=== PATIENT | male | born 1960 | race Caucasian/White ===

== ENCOUNTER 2024-07-31 14:16 | Observation (INO) | payer MEDICARE, SELFPAY ==
[2024-07-31] VITALS (19 sets, daily range): BP systolic 118–167; BP diastolic 60–91; PULSE 62–80; RESP 12–19; TEMP 36.3–37.3; O2SAT 92–99; BMI 40.3
--- NOTE | 2024-07-31 14:31 | ED_ITS ---
HPI - Abdominal Pain 2 General: Chief Complaint: Abdominal Pain Stated Complaint: (clinic reff) appendicitis Time Seen by Provider: 07/31/24 14:25 Source: patient Mode of arrival: ambulatory Limitations: no limitations History of Present Illness: 64-year-old male states has been having right lower quadrant abdominal pain for last 2 days. States been a sharp pain states it has been worse with palpation. Has had some nausea diarrhea as well he denies any dysuria has had some low- grade fevers no history of any abdominal surgeries in the past. Associated Symptoms: Reports nausea; Denies chills, dysuria, fever(s) and vomiting Related Data Home Medications ?Medication ?Instructions ?Recorded ?Confirmed garlic 300 mg capsule 300 mg PO DAILY 07/31/24 glucosamine sulf dipot 1 cap PO DAILY 07/31/2407/08 chlr,msm,chond 550 mg-C 30 mg-rodolfo 1 mg capsule (Glucosamine Chondroitin) lisinopril 10 mg tablet 10 mg PO BID 07/31/24 turmeric root extract 500 mg tablet 500 mg PO DAILY 07/31/24 Allergies Allergy/AdvReac Type Severity Reaction Status Date / Time No Known Allergies Allergy Verified 07/31/24 14:19 Review of Systems 2 Const: Denies: fever(s), chills, body aches or change in appetite ENMT: Denies: throat pain or dental pain Card: Denies: chest pain Resp: Denies: dyspnea GI: Reports: abdominal pain and nausea; Denies: vomiting : Denies: dysuria Musc: Denies: neck pain or back pain Skin/Breast: Denies: rash Neuro: Denies: headache(s) Physical Exam 2 Const: COMMON NORMALS: no acute distress, patient oriented x3 and healthy appearing HENMT: COMMON NORMALS: normocephalic and atraumatic HEAD & SCALP: n ormocephalic and atraumatic Eye: COMMON NORMALS: conjunctivae normal CONJUNCTIVA: Yes conjunctivae normal Neck/C-Spine: COMMON NORMALS: full ROM and supple Chest: COMMONS NORMALS: normal inspection of the chest Resp: COMMON NORMALS: normal respiratory effort Cardio: COMMON NORMALS: regular rate, regular rhythm and No murmurs present (Cardio) RATE: regular rate RHYTHM: regular rhythm GI: COMMON NORMALS: Normal to inspection, nondistended, normoactive bowel sounds present, Soft to palpation and no masses PALPATION: Yes Soft to palpation and Yes Tenderness to palpation present (GI) Details: RLQ Extremity: COMMON NORMALS: normal to inspection and full ROM Neuro: COMMON NORMALS: patient oriented x3, moves all extremities and no focal motor deficits Psych: COMMON NORMALS: mental status grossly normal, Normal thought process present and cooperative THOUGHT PROCESS: Normal thought process present Skin: COMMON NORMALS: no rashes or lesions noted and no wounds GENERAL SKIN EXAM: no rashes or lesions noted Course 2 Vital Signs: Vital signs: Vital Signs Temperature 99.1 F 07/31/24 14:19 Pulse Rate 79 07/31/24 16:00 Respiratory Rate 16 07/31/24 14:55 Blood Pressure 138/71 07/31/24 16:00 Pulse Oximetry 98 07/31/24 16:00 Oxygen Delivery Me thod Room Air 07/31/24 16:00 MDM - Abdominal Pain Medical Decision Making Patient presents here with right lower quadrant pain CT shows appendicitis I spoke to surgeon on-call will admit at this time Medical Records I reviewed the patient's medical records. Lab Data I reviewed the patient's lab results. 07/31/24 15:04 07/31/24 15:04 Labs/Radiology: Radiology Impressions Abdomen/Pelvis CT 07/31/24 14:31 IMPRESSION: 1. Fluid-filled enlarged appendix which mild adjacent mesenteric fat stranding , most consistent with uncomplicated acute appendicitis. No abscess formation. No pneumoperitoneum. 2. Simple bilateral renal cysts; no imaging follow-up is required. 3. Enlarged prostate. COMMENTS: 1. THIS REPORT CONTAINS FINDINGS THAT MAY BE CRITICAL TO PATIENT CARE. The exam findings were verbally communicated by me to KAI ONTIVEROS via telephone conference at 5:09 PM AIRBORNE AND AIR DELIVERY SPECIALIST on 07/31/2024. The findings were acknowledged and understood. 2. Consistent with the [employer]'s Incidental Findings Committee white paper (J Am David Radiol 2018): Any incidental renal lesion less than 1 cm or classified as too small to characterize, or any incidental cystic renal lesion characterized as simple-appearing, is likely benign. No follow-up imaging is recommended for these lesions per consensus recommendations based on imaging criteria. Laboratory Results WBC 8.86 10^3/uL (3.29-11.43) 07/31/24 15:04 RBC 5.03 10^6/uL (3.85-5.65) 07/31/24 15:04 Hgb 14.80 g/dL (11.27-16.99) 07/31/24 15:04 Hct 43.9 % (37-53) 07/31/24 15:04 MCV 87.3 fl (82-101) 07/31/24 15:04 MCH 29.4 pg (27-33) 07/31/24 15:04 MCHC 33.7 g/dL (30-55) 07/31/24 15:04 RDW 13.0 % (12.1-15.1) 07/31/24 15:04 Plt Count 216 10^3/cmm (157-399) 07/31/24 15:04 MPV 9.6 fL (7.4-10.4) 07/31/24 15:04 Neut % (Auto) 63.6 % 07/31/24 15:04 Lymph % (Auto) 26.3 % 07/31/24 15:04 Tompkins % (Auto) 6.7 % 07/31/24 15:04 Eos % (Auto) 2.5 % 07/31/24 15:04 Baso % (Auto) 0.7 % 07/31/24 15:04 Neut # (Auto) 5.64 10^3/uL (1.8-7.7) 07/31/24 15:04 Lymph # (Auto) 2.3 10^3/uL (0.8-4.8) 07/31/24 15:04 [place]pkins # (Auto) 0.6 10^3/uL (0.2-0.9) 07/31/24 15:04 Eos # (Auto) 0.2 10^3/uL (0.0-0.8) 07/31/24 15:04 Baso # (Auto) 0.1 10^3/uL (0.0-0.1) 07/31/24 15:04 Nucleated RBC % (auto) 0 % 07/31/24 15:04 Nucleated RBCs # 0.0 /100WBC 07/31/24 15:04 Sodium 139 mmol/L (136-145) 07/31/24 15:04 Potassium 4.1 mmol/L (3.5-5.1) 07/31/24 15:04 Chloride 100 mmol/L (98-107) 07/31/24 15:04 Carbon Dioxide 25 mmol/L (22-29) 07/31/24 15:04 Anion Gap 18.1 (5-19) 07/31/24 15:04 BUN 13 mg/dL (8-23) 07/31/24 15:04 Creatinine 0.8 mg/dL (0.7-1.2) 07/31/24 15:04 GFR Calculation 96.7 mL/min (90-130) 07/31/24 15:04 Glucose 115 mg/dL (65-115) 07/31/24 15:04 Calculated Osmolality 289 mOsm/kg (285-295) 07/31/24 15:04 Calcium 9.5 mg/dL (8.5-10.5) 07/31/24 15:04 Total Bilirubin 0.8 mg/dL (0.15-1.2) 07/31/24 15:04 AST 17 U/L (0-40) 07/31/24 15:04 ALT 20 U/L (0-41) 07/31/24 15:04 Alkaline Phosphatase 77 U/L (40-130) 07/31/24 15:04 Total Protein 7.9 g/dL (6.6-8.7) 07/31/24 15:04 Albumin 4.6 g/dL (3.5-5.2) 07/31/24 15:04 Globulin 3.3 g/dL (1.3-4.6) 07/31/24 15:04 Lipase 19 U/L (13-60) 07/31/24 15:04 Amorphous Sediment Not Reportable 07/31/24 16:53 All radiology interpretation(s) finalized by discharge Discharge Plan Discharge Patient Disposition: Admitted As Inpatient Clinical Impression: Acute appendicitis Condition: Stable Prescriptions: No Action garlic 300 mg Capsule 300 mg PO DAILY lisinopril 10 mg tablet 10 mg PO BID Glucosamine Chondroitin 550-30-1 mg Capsule 1 cap PO DAILY turmeric root extract 500 mg Tablet 500 mg PO DAILY Referrals: Stacey De Jesus, UNDERCOVER COP-C [Family Provider] - Patient Instructions: Appendicitis (GEN) Print Language: Mauritian Coding Level of Care Code ED Sandblasting Supervisor for Bryce Wallace
--- NOTE | 2024-07-31 14:31 | CTR_ITS ---
PROCEDURE INFORMATION: Exam: CT Abdomen And Pelvis With Contrast Exam date and time: 07/31/2024 4:29 PM Age: 64 years old Clinical indication: Abdominal pain; Localized; Right lower quadrant (rlq); Additional info: Rlq pain TECHNIQUE: Imaging protocol: Computed tomography of the abdomen and pelvis with contrast. Radiation optimization: All CT scans at this facility use at least one of these dose optimization techniques: automated exposure control; mA and/or kV adjustment per patient size (includes targeted exams where dose is matched to clinical indication); or iterative reconstruction. Contrast material: OMNIPAQUE 350; Contrast volume: 100 ml; Contrast route: INTRAVENOUS (IV); COMPARISON: No relevant prior studies available. RADIATION DOSE METRICS: Total DLP (mGy-cm): 1144.63 FINDINGS: Lungs: Unremarkable. Diaphragm: Tiny hiatal hernia. Liver: Subcentimeter hypodensity within the liver, not fully characterized but likely represents simple hepatic cysts. Gallbladder and biliary ducts: Normal. No calcified stones. No ductal dilation. Pancreas: Normal. No ductal dilation. Spleen: Normal. No splenomegaly. Adrenal glands: Normal. No mass. Kidneys and ureters: Simple appearing bilateral renal cysts measuring up to 2.4 cm on the left and 1.2 cm on the right. Additional subcentimeter hypodensities, too small to characterize but likely represent additional simple renal cysts. Stomach and bowel: Unremarkable. No obstruction. No mucosal thickening. Appendix: Appendix is fluid-filled and measures up to 13 mm (series 3, image 49). There is mild adjacent fat stranding. Intraperitoneal space: Unremarkable. No free air. No significant fluid collection. Vasculature: Unremarkable. No abdominal aortic aneurysm. Lymph nodes: Unremarkable. No enlarged lymph nodes. Urinary bladder: Unremarkable as visualized. Reproductive: Prostate is mildly enlarged. Bones/joints: Unremarkable. No acute fracture. Soft tissues: Unremarkable. CT/CT abdomen pelvis w con* [id number] IMPRESSION: 1. Fluid-filled enlarged appendix which mild adjacent mesenteric fat stranding , most consistent with uncomplicated acute appendicitis. No abscess formation. No pneumoperitoneum. 2. Simple bilateral renal cysts; no imaging follow-up is required. 3. Enlarged prostate. COMMENTS: 1. THIS REPORT CONTAINS FINDINGS THAT MAY BE CRITICAL TO PATIENT CARE. The exam findings were verbally communicated by me to RAMA, KORBY via telephone conference at 5:09 PM DEPUTY BAILIFF on 07/31/2024. The findings were acknowledged and understood. 2. Consistent with the [employer]'s Incidental Findings Committee white paper (J Am David Radiol 2018): Any incidental renal lesion less than 1 cm or classified as too small to characterize, or any incidental cystic renal lesion characterized as simple-appearing, is likely benign. No follow-up imaging is recommended for these lesions per consensus recommendations based on imaging criteria.
[2024-07-31] MEDS: ondansetron 2 mg/ML SDV 2 mL 4 MG IVP (15:13)
[2024-07-31 15:53] LABS: Basophils # 0.1 10^3/uL (0.0-0.1); Basophils % 0.7 %; Eosinophils # 0.2 10^3/uL (0.0-0.8); Eosinophils % 2.5 %; Hematocrit 43.9 % (37-53); Lymphocytes # 2.3 10^3/uL (0.8-4.8); Lymphocytes % 26.3 %; Mean Corpuscular HGB Conc 33.7 g/dL (30-55); Mean Corpuscular Hemoglobin 29.4 pg (27-33); Mean Corpuscular Volume 87.3 fl (82-101); Mean Platelet Volume 9.6 fL (7.4-10.4); Monocytes # 0.6 10^3/uL (0.2-0.9); Monocytes % 6.7 %; Neutrophils # 5.64 10^3/uL (1.8-7.7); Neutrophils % 63.6 %; Nucleated Red Blood Cells % 0 %; Platelet Count 216 10^3/cmm (157-399); Red Blood Count 5.03 10^6/uL (3.85-5.65); White Blood Count 8.86 10^3/uL (3.29-11.43)
[2024-07-31 16:18] LABS: Alanine Aminotransferase 20 U/L (0-41); Albumin Level 4.6 g/dL (3.5-5.2); Alkaline Phosphatase 77 U/L (40-130); Anion Gap 18.1 (5-19); Aspartate Amino Transferase 17 U/L (0-40); Blood Urea Nitrogen 13 mg/dL (8-23); Calcium 9.5 mg/dL (8.5-10.5); Carbon Dioxide 25 mmol/L (22-29); Chloride 100 mmol/L (98-107); Creatinine Clr Calc Pharmacy 114.4955; Globulin 3.3 g/dL (1.3-4.6); Glomerular Filtration Rate 96.7 mL/min (90-130); Glucose 115 mg/dL (65-115); Lipase 19 U/L (13-60); Osmolality Calculated 289 mOsm/kg (285-295); Potassium 4.1 mmol/L (3.5-5.1); Sodium 139 mmol/L (136-145); Total Bilirubin 0.8 mg/dL (0.15-1.2); Total Protein 7.9 g/dL (6.6-8.7)
[2024-07-31] MEDS: iohexol 350 mg/mL 500 mL Btl (per mL) IV (16:31)
[2024-07-31 17:11] LABS: Add Urine Microscopic? NO
[2024-07-31 17:14] LABS: Bilirubin Urine Negative (Negative); Blood Urine Negative (Negative); Glucose Urine UA Negative (Normal); Ketones Urine Negative (Negative); Leukocyte Esterase Urine Negative (Negative); Nitrate Urine Negative (Negative); Protein Urine Negative (Negative); Urine Appearance Clear (CLEAR); Urine Color Yellow (Yellow); pH Urine 5.5 (5-7)
[2024-07-31] MEDS: piperacillin-tazobactam 3.375 GM in sodium chloride 0.9% (plus) 50 ML IV ×3 (17:15→22:24)
--- NOTE | 2024-07-31 17:16 | PM.HP ---
Providers/Chief Complaint Chief Complaint: (clinic reff) appendicitis History of Present Illness Alex Lai is a 64 year old male who presents with uncomplicated acute appendicitis. No abdominal surgeries. Patient reports right lower quadrant pain. Some nausea. Medications/Allergies Home Medications ?Medication ?Instructions ?Recorded ?Confirmed ?Last Taken ?Type garlic 300 mg capsule 300 mg PO DAILY 07/31/24 07/31/24 07/31/24 History glucosamine sulf dipot 1 cap PO DAILY 07/31/24 07/31/24 07/31/24 History chlr,msm,chond 550 mg-C 30 mg-rodolfo 1 mg capsule (Glucosamine Chondroitin) lisinopril 10 mg tablet 10 mg PO BID 07/31/24 07/31/24 07/31/24 History turmeric root extract 500 mg tablet 500 mg PO DAILY 07/31/24 07/31/24 07/31/24 History Allergies Allergy/AdvReac Type Severity Reaction Status Date / Time No Known Allergies Allergy Verified 07/31/24 14:19 Vitals/I&O/Wt Last Vital Signs Temp 99.1 F 07/31/24 14:19 Pulse 79 07/31/24 16:00 Resp 16 07/31/24 14:55 BP 138/71 07/31/24 16:00 Pulse Ox 98 07/31/24 16:00 O2 Del Method Room Air 07/31/24 16:00 07/31/24 07/31/24 07/31/24 06:59 14:59 22:59 Intake Total 0 / 0 Balance 0 / 0 Weight last 48 hrs Weight 265 lb Physical Exam Narrative: Chest: Unlabored breathing room air. No lymphadenopathy. Heart: Regular rate and rhythm. Abdomen: Soft, tender right lower quadrant, distended. No masses or lymphadenopathy. Data 07/31/24 15:04 07/31/24 15:04 A&P Assessment and plan (1) Acute appendicitis: Plan 64-year-old male who presents with acute uncomplicated appendicitis. Discussed risk and benefits and patient agrees to proceed with laparoscopic appendectomy possible open. PDMP PDMP Reviewed: Not Reviewed Attestations Medical Necessity Statement*: IV antibiotics, IV fluids, IV pain meds. Coding Level of Care Code 11320 Diagnoses Acute appendicitis K35.80 Time Spent (min) 30
[2024-07-31 17:22] LABS: Specific Gravity, Urine 1.056 (1.005-1.030)
[2024-07-31 17:23] LABS: Add Urine Culture? No
[2024-07-31 17:24] LABS: Charge for UA Resulting for Rev
--- NOTE | 2024-07-31 17:39 | PC.NURSE ---
pt changed into gown, id band on, allergy band on.
--- NOTE | 2024-07-31 20:22 | ANES.PREANE2 ---
Pre-Anesthetic Assessment Height/Weight: Height 1.73 m Weight 120.202 kg Temp Pulse Resp BP Pulse Ox O2 Del Method O2 Flow Rate 98 F 70 19 H 144/83 98 Nasal Cannula 5 07/31/24 17:55 07/31/24 18:12 07/31/24 17:55 07/31/24 18:12 07/31/24 18:12 07/31/24 17:55 07/31/24 17:55 Operation Date: 07/31/24 15:10 Proposed Procedures p Appendectomy(Right) - Shaun Rosas MD Familial anesthetic complications: Slow to wake after a shoulder surgery, required admission for 2 days. Did not require ICU care. Was Beta Violetta taken within 24 hours: N/A Was Clonidine taken within 24 hours: N/A Last intake: > 8 hrs Social No alcohol and No tobacco Exam alert, oriented x 3, clear to auscultation bilaterally and regular rate & rhythm Airway Dentition: chipped and partials Metabolic Morbid Obesity Anesthetic Plan ASA status: 2 Anesthesia: General Risk of > 500 ml blood loss (7ml/kg in children): No Medications/Allergies Home Medications ?Medication ?Instructions ?Recorded ?Confirmed ?Last Taken ?Type garlic 300 mg capsule 300 mg PO DAILY 07/31/24 07/31/24 07/31/24 History glucosamine sulf dipot 1 cap PO DAILY 07/31/24 07/31/24 07/31/24 History chlr,msm,chond 550 mg-C 30 mg-rodolfo 1 mg capsule (Glucosamine Chondroitin) lisinopril 10 mg tablet 10 mg PO BID 07/31/24 07/31/24 07/31/24 History turmeric root extract 500 mg tablet 500 mg PO DAILY 07/31/24 07/31/24 07/31/24 History Allergies Allergy/AdvReac Type Severity Reaction Status Date / Time No Known Allergies Allergy Verified 07/31/24 14:19 Data Anesthesia 07/31/24 15:04 07/31/24 15:04 Short CBC 07/31/24 Range/Units 15:04 WBC 8.86 (3.29-11.43) 10^3/uL Hgb 14.80 (11.27-16.99) g/dL Hct 43.9 (37-53) % MCV 87.3 (82-101) fl Plt Count 216 (157-399) 10^3/cmm Neut % (Auto) 63.6 % Neut # (Auto) 5.64 (1.8-7.7) 10^3/uL BMP 07/31/24 15:04 Sodium 139 Potassium 4.1 Chloride 100 Carbon Dioxide 25 BUN 13 Creatinine 0.8 Glucose 115 Calcium 9.5 Liver Function 07/31/24 Range/Units 15:04 Total Bilirubin 0.8 (0.15-1.2) mg/dL AST 17 (0-40) U/L ALT 20 (0-41) U/L Alkaline Phosphatase 77 (40-130) U/L Albumin 4.6 (3.5-5.2) g/dL Urine 07/31/24 Range/Units 16:53 Urine Color Yellow (Yellow) Urine Appearance Clear (CLEAR) Urine pH 5.5 (5-7) Ur Specific [place] 1.056 H (1.005-1.030) Urine Protein Negative (Negative) Urine Glucose (UA) Negative (Normal) Urine Ketones Negative (Negative) Urine Nitrate Negative (Negative) Urine Bilirubin Negative (Negative) Ur Leukocyte Esterase Negative (Negative) Cardiac Studies: No Data to Display
[2024-07-31] MEDS: lidocaine-epi 1% 20 mL INJ 10 ML INJECTION (20:26)
[2024-07-31] MEDS: BUPivacaine 0.25% INJ 10 mL INJECTION (20:26)
--- NOTE | 2024-07-31 20:31 | P.OP_ITS ---
Operative Report Date of procedure: July 31, 2024 Pre-op diagnosis: Acute uncomplicated appendicitis Post-op diagnosis: same Post-op findings: Acute uncomplicated appendicitis Procedure done: Laparoscopic appendectomy Implants: NA Specimens removed/disposition: Appendix sent to pathology Pathology: Appendix Surgeon: Shaun Rosas MD Generation Technologist: JOHN Anesthesia: General Estimated blood loss (mL): 10 Complications: NA Findings: Acute uncomplicated appendicitis. Intact staple line at the base of the appendix. Adequate hemostasis achieved with Ligasure. Condition: stable Disposition: observation Brief History: 64yo male who presented with acute uncomplicated appendicitis. Discussed risks and benefits and patient agreed to proceed with laparoscopic appendectomy, possible open Procedure: After having a discussion about risks and benefits and obtaining consent, patient was brought to the OR. SCDs were functioning prior to intubation. Zosyn was given 5min prior to incision. General anesthesia was administered. Arms were tucked. A france catheter was placed. The abdomen was prepped and draped in the usual sterile fashion. Insufflation was achieved using a Veress needle at Eubanks's point (15mmHg). A 5mm port was placed at the umbilicus using an optical view port. Then a 5mm port was placed suprapubically, and a 12mm port was placed in the left lower quadrant. The abdomen was inspected and no injuries were noted . Patient was placed in Trendelenburg and the table was rotated left. Using atraumatic bowel graspers the small bowel was placed on the left side of the abdomen, revealing the cecum and inflammed appendix. The appendix was dissected off the pelvic side wall bluntly. The appendix was grasped and the mesoappendix was taken down using a Ligasure. The base of the appendix was found to be intact. I proceeded to staple off the appendix at its base using a laparoscopic stapler with a blue load. The appendix was then retrieved using an endocatch bag. The staple line on the cecum was inspected, and found to be intact. Adequate hemostasis was confirmed. The abdomen was desufflated and skin was closed using 4-0 monocryl and surgical glue. [place] was removed at the end of the case. The patient woke up from anesthesia and was transferred to PACU without any complications
--- NOTE | 2024-07-31 21:02 | PC.NURSE ---
2100 - noted pt to be whispering to speak - SHANE Agustin notified of change in pt voice vs pre op - per PEER FINANCIAL COUNSELOR pt reported this is common for him post surgery
--- NOTE | 2024-07-31 21:20 | ANE.PACU2 ---
Inpatient post-anesthesia follow up: Airway intact: Yes Vital signs: Temperature 98.1 F Pulse Rate 65 Respiratory Rate 18 Blood Pressure 165/82 Pulse Oximetry 95 Oxygen Delivery Me thod Room Air Oxygen Flow Rate 2 Fraction of Inspir ed Oxygen Hydration adequate: Yes Nausea and vomiting: No Pain level: 1 Mental status: Baseline
--- NOTE | 2024-07-31 21:35 | PC.NURSE ---
2128 - accepted to room 277-1 with KISHAN Gregg at side - pt in no distress upon this nurse exiting room - abd azeem c/d/i - BP 139/76 - pulse 63 - temp 97.6 - 02 97%
[2024-08-01 00:09] VITALS: BP 118/71; PULSE 69; RESP 18; TEMP 36.5; O2SAT 96
[2024-08-01 00:40] VITALS: BP 132/74; PULSE 66; RESP 18; TEMP 36.6; O2SAT 92
[2024-08-01] MEDS: piperacillin-tazobactam 3.375 GM in sodium chloride 0.9% (plus) 50 ML IV (04:33)
[2024-08-01 04:34] VITALS: BP 128/74; PULSE 71; RESP 18; TEMP 36.5; O2SAT 92
[2024-08-01 04:46] VITALS: BP 132/74; PULSE 66; RESP 18; TEMP 36.6; O2SAT 95
[2024-08-01 04:47] VITALS: BP 124/76; PULSE 65; RESP 18; TEMP 36.3; O2SAT 94
--- NOTE | 2024-08-01 08:01 | P.PN_ITS ---
Subjective 2 Subjective: Tolerating p.o. Pain under control Incisions clean dry intact Vitals/I&O/Wt Last Vital Signs Temp 97.4 F L 08/01/24 04:47 Pulse 65 08/01/24 04:47 Resp 18 08/01/24 04:47 BP 124/76 08/01/24 04:47 Pulse Ox 94 08/01/24 04:47 O2 Del Method Room Air 08/01/24 04:47 O2 Flow Rate 2 08/01/24 04:34 07/31/24 08/01/24 08/01/24 22:59 06:59 14:59 Intake Total 750 / 750 700 / 1450 Output Total 302 / 302 550 / 852 Balance 448 / 448 150 / 598 Weight last 48 hrs Weight 265 lb 3.2 oz Weight 265 lb Weight 265 lb Physical Exam 2 Narrative: Chest: Unlabored breathing room air. No lymphadenopathy. Heart: Regular rate and rhythm. Abdomen: Soft, mildly tender, nondistended. No masses or lymphadenopathy. Incisions clean dry intact Urinary Catheter Management: Bain: Cath Placed During This Visit: yes Urinary Catheter Date of Insertion: 07/31/24 Urinary Catheter Time of Insertion: 20:10 Data 07/31/24 15:04 07/31/24 15:04 A&P Assessment and plan (1) Acute appendicitis: Plan 64-year-old male status post lap appendectomy. Doing well. Cleared for discharge. Follow-up in 2 weeks. PDMP PDMP Reviewed: Not Reviewed Attestations 2 Medical Necessity Statement*: IV antibiotics, IV fluids, laparoscopic appendectomy Coding Level of Care Code 88940 Diagnoses Acute appendicitis K35.80 Time Spent (min) 30
--- NOTE | 2024-08-01 08:03 | P.DS_ITS ---
Discharge Providers Date of Admission: 07/31/24 17:54 Date of Discharge: August 01, 2024 Attending Provider at Admission: Shaun Rosas MD Attending Provider at Discharge: Shaun Rosas MD Diagnoses at Discharge Discharge Diagnosis (1) Acute appendicitis: Status: Acute Reason for Visit Reason for Visit: (clinic reff) appendicitis Hospital Course Hospital Course 64-year-old male who presented with uncomplicated acute appendicitis. Plan for laparoscopic appendectomy. Patient did well afterwards. Tolerating p.o. Pain under control. Being discharged on POD 1 Physical Exam Narrative: Chest: Unlabored breathing room air. No lymphadenopathy. Heart: Regular rate and rhythm. Abdomen: Soft, mildly tender, nondistended. No masses or lymphadenopathy. Incisions clean dry intact Urinary Catheter Management: Bain: Cath Placed During This Visit: yes Urinary Catheter Date of Insertion: 07/31/24 Urinary Catheter Time of Insertion: 20:10 Discharge Data Studies Completed and Pending Completed Studies During Hospitalization Category Date Time Status CT abdomen pelvis w con* [id number] Stat Cat Scan 07/31/24 14:31 Completed Pending at discharge Category Date Time Status Pathology: Surgical [PTH] Routine Pth 07/31/24 21:06 Ordered Radiology Impressions Abdomen/Pelvis CT 07/31/24 14:31 IMPRESSION: 1. Fluid-filled enlarged appendix which mild adjacent mesenteric fat stranding , most consistent with uncomplicated acute appendicitis. No abscess formation. No pneumoperitoneum. 2. Simple bilateral renal cysts; no imaging follow-up is required. 3. Enlarged prostate. COMMENTS: 1. THIS REPORT CONTAINS FINDINGS THAT MAY BE CRITICAL TO PATIENT CARE. The exam findings were verbally communicated by me to KAI ONTIVEROS via telephone conference at 5:09 PM CONSTRUCTION FLAGGER on 07/31/2024. The findings were acknowledged and understood. 2. Consistent with the [employer]'s Incidental Findings Committee white paper (J Am David Radiol 2018): Any incidental renal lesion less than 1 cm or classified as too small to characterize, or any incidental cystic renal lesion characterized as simple-appearing, is likely benign. No follow-up imaging is recommended for these lesions per consensus recommendations based on imaging criteria. Laboratory Results WBC 8.86 10^3/uL (3.29-11.43) 07/31/24 15:04 RBC 5.03 10^6/uL (3.85-5.65) 07/31/24 15:04 Hgb 14.80 g/dL (11.27-16.99) 07/31/24 15:04 Hct 43.9 % (37-53) 07/31/24 15:04 MCV 87.3 fl (82-101) 07/31/24 15:04 MCH 29.4 pg (27-33) 07/31/24 15:04 MCHC 33.7 g/dL (30-55) 07/31/24 15:04 RDW 13.0 % (12.1-15.1) 07/31/24 15:04 Plt Count 216 10^3/cmm (157-399) 07/31/24 15:04 MPV 9.6 fL (7.4-10.4) 07/31/24 15:04 Neut % (Auto) 63.6 % 07/31/24 15:04 Lymph % (Auto) 26.3 % 07/31/24 15:04 [place] % (Auto) 6.7 % 07/31/24 15:04 Eos % (Auto) 2.5 % 07/31/24 15:04 Baso % (Auto) 0.7 % 07/31/24 15:04 Neut # (Auto) 5.64 10^3/uL (1.8-7.7) 07/31/24 15:04 Lymph # (Auto) 2.3 10^3/uL (0.8-4.8) 07/31/24 15:04 [place]edar # (Auto) 0.6 10^3/uL (0.2-0.9) 07/31/24 15:04 Eos # (Auto) 0.2 10^3/uL (0.0-0.8) 07/31/24 15:04 Baso # (Auto) 0.1 10^3/uL (0.0-0.1) 07/31/24 15:04 Nucleated RBC % (auto) 0 % 07/31/24 15:04 Nucleated RBCs # 0.0 /100WBC 07/31/24 15:04 Sodium 139 mmol/L (136-145) 07/31/24 15:04 Potassium 4.1 mmol/L (3.5-5.1) 07/31/24 15:04 Chloride 100 mmol/L (98-107) 07/31/24 15:04 Carbon Dioxide 25 mmol/L (22-29) 07/31/24 15:04 Anion Gap 18.1 (5-19) 07/31/24 15:04 BUN 13 mg/dL (8-23) 07/31/24 15:04 Creatinine 0.8 mg/dL (0.7-1.2) 07/31/24 15:04 GFR Calculation 96.7 mL/min (90-130) 07/31/24 15:04 Glucose 115 mg/dL (65-115) 07/31/24 15:04 Calculated Osmolality 289 mOsm/kg (285-295) 07/31/24 15:04 Calcium 9.5 mg/dL (8.5-10.5) 07/31/24 15:04 Total Bilirubin 0.8 mg/dL (0.15-1.2) 07/31/24 15:04 AST 17 U/L (0-40) 07/31/24 15:04 ALT 20 U/L (0-41) 07/31/24 15:04 Alkaline Phosphatase 77 U/L (40-130) 07/31/24 15:04 Total Protein 7.9 g/dL (6.6-8.7) 07/31/24 15:04 Albumin 4.6 g/dL (3.5-5.2) 07/31/24 15:04 Globulin 3.3 g/dL (1.3-4.6) 07/31/24 15:04 Lipase 19 U/L (13-60) 07/31/24 15:04 Urine Color Yellow (Yellow) 07/31/24 16:53 Urine Appearance Clear (CLEAR) 07/31/24 16:53 Urine pH 5.5 (5-7) 07/31/24 16:53 Ur Specific [place] 1.056 (1.005-1.030) H 07/31/24 16:53 Urine Protein Negative (Negative) 07/31/24 16:53 Urine Glucose (UA) Negative (Normal) 07/31/24 16:53 Urine Ketones Negative (Negative) 07/31/24 16:53 Urine Blood Negative (Negative) 07/31/24 16:53 Urine Nitrate Negative (Negative) 07/31/24 16:53 Urine Bilirubin Negative (Negative) 07/31/24 16:53 Urine Urobilinogen 1.0 mg/dL (Negative) 07/31/24 16:53 Ur Leukocyte Esterase Negative (Negative) 07/31/24 16:53 Amorphous Sediment Not Reportable 07/31/24 16:53 Vitals Last Vital Signs Temp 97.4 F L 08/01/24 04:47 Pulse 65 08/01/24 04:47 Resp 18 08/01/24 04:47 BP 124/76 08/01/24 04:47 Pulse Ox 94 08/01/24 04:47 O2 Del Method Room Air 08/01/24 04:47 O2 Flow Rate 2 08/01/24 04:34 Discharge Plan Discharge Patient Disposition: Home Condition: Stable Prescriptions: New oxycodone 5 mg tablet 5 mg PO Q6H PRN (Reason: pain) 5 Days Qty: 10 0RF Continued garlic 300 mg Capsule 300 mg PO DAILY lisinopril 10 mg tablet 10 mg PO BID Glucosamine Chondroitin 550-30-1 mg Capsule 1 cap PO DAILY turmeric root extract 500 mg Tablet 500 mg PO DAILY Discharge Orders: Discharge Order (Routine); Ordered 08/01/24 Ordered By: Shaun Rosas Referrals: Shaun Rosas MD [Physician] - 08/13/24 9:55 am Rebecca Rico [Referring] - 08/03/24 11:40 am (Appointment will be with SHANTA Cobos) Discharge Diet: Usual diet Discharge Activity: Limit activity as instructed Patient Instructions: Laparoscopic Appendectomy (GEN), Opioid Safety Activity Restrictions/Additional Instructions: 1. No heavy exercise or lifting greater than 10lbs for 6 weeks. 2. No pools, saunas, bathtubs for [address] if taking narcotics. 4. You may take over the counter tylenol 650mg every 6 hrs and ibuprofen 400mg every 6 hrs as needed for 5 days in addition to the oxycodone. 5. Follow-up in clinic in 2 weeks. 6. Call the office if you have any concerns or questions. Discharge Attestations Time Spent in Discharge Care*: less than 30 min Quality Metrics Clinical Quality Measures [ No reported AMI, CVA or VTE this stay] Coding Level of Care Code Acute Code for [facility] Diagnoses Acute appendicitis K35.80
[2024-08-01 08:41] VITALS: BP 165/82; PULSE 65; RESP 18; TEMP 36.7; O2SAT 95
--- NOTE | 2024-08-01 09:37 | PC.CHAP ---
Pastoral Care Encounter/Spiritual Assessment Type of Contact [] Declined bias machine operator visit [] Patient/Family/Request visit [] Outpatient visit [] Follow-up visit [] Physician referral [] Code/Alert [x] Routine visit [] Staff referral [] Actively dying [] Patient sleeping [x] Family support [] [] Out of room [] Palliative care [] [] Receiving care in room [] Pre-surgical visit [] Trauma [] Long length of stay [] ICU visit [] Other: Relational/Emotional Strength [x] Patient feels connected with others/family/visitors/staff [] Distress [] Loneliness/isolation [] Abandonment Spirituality of Patient [x] Person of Anusha [x] Attends Restoration of their Anusha [x] Believes in Prayer [x] Reads Bible or Yarsanism materials [] There are Spiritual issues to be addressed Clinical Research Management Associate Interventions [x] Prayer [x] Active listening [] Non-anxious presence [x] Spiritual/emotional support [] Crisis/trauma care [] Spiritual counseling [] Bereavement support [] Provided bereavement packet [] Provided Bible/devotional materials [] Provided toy/stuffed animal, coloring book to patient or family member [] Provided Communion [] Anointing/Truro [] Salvation [x] Completed spiritual assessment [] Other: Impact on Illness or Injury [] Angry [] Fearful [] Anxious [] Often cries [] Exhaustion [] Unable to work [] Unable to attend restorationism [] Unable to walk/stand [] Unable to read [] Unable to drive [] Unable to eat/drink [] Unable to sleep [] Unable to be with family [] Patient intubated [] Other: Summary Time spent with patient 10 min
== END 2024-08-01 10:30 | disposition home or self-care (01) ==
LOC: ER 17:29 → OR 17:39 → MEDSURG 18:11
PROVIDERS: Admitting Provider Student in an Organized Health Care Education/Training Program; Emergency Provider Emergency Medicine; Family Provider Nurse Practitioner; Visit Provider Student in an Organized Health Care Education/Training Program
PROC: (CPT 44950; principal; 2024-07-31 15:00)
DX: K35.80 Unspecified acute appendicitis (principal); Z79.899 Other long term (current) drug therapy; E66.01 Morbid (severe) obesity due to excess calories; Z68.41 Body mass index [BMI] 40.0-44.9, adult; K08.89 Other specified disorders of teeth and supporting structures
CPT/HCPCS: 44970; 36415; 51702; 74177; 80053; 81003; 83690; 85025; 88304; 96365; 96375; 99285; G0378; J0131; J1100; J2405; J2543; J2704; J3010; J3490

== ENCOUNTER → 2024-08-13 09:03 | Outpatient (BNVA) | payer MEDICARE, SELFPAY | PROVIDERS: Family Provider Nurse Practitioner; Visit Provider Student in an Organized Health Care Education/Training Program | DX: Z98.890 Other specified postprocedural states (principal); Z90.49 Acquired absence of other specified parts of digestive tract | CPT/HCPCS: 99024 ==